=== PATIENT | female | born 1985 | race Caucasian/White ===

== ENCOUNTER 2021-09-26 15:17 | Emergency (ER) | payer BC ==
[~2021-09-26] VITALS: Ht 170.2 cm; Wt 163.6 kg
[~2021-09-26 15:17] MED LIST: ALPRAZOLAM; BCP PO; BCP TD; CIPRO 500MG TA500 MG PO; FLEXERIL 1010 MG/TAB PO; LORTAB 5/500 501 TAB PO; LORTAB 7.5/5001 TAB PO; MEDROL 4MG DOSPA4 MG PO
[2021-09-26 18:18] VITALS: TEMP 98.1
[2021-09-26] MEDS ORDERED: NORCO 325 MG-51 TAB PO (19:38)
[2021-09-26 20:30] VITALS: PULSE 96
[2021-09-26 21:16] VITALS: BP 188/90
== END 2021-09-26 20:30 | disposition home or self-care (01) ==
LOC: COL.ER 15:17
DX: S82.831A Other fracture of upper and lower end of right fibula, initial encounter for closed fracture (principal); W10.9XXA Fall (on) (from) unspecified stairs and steps, initial encounter

== ENCOUNTER 2022-11-13 16:49 | Emergency (ER) | payer BC ==
[~2022-11-13] VITALS: Ht 167.6 cm; Wt 163.6 kg
[~2022-11-13 16:49] MED LIST changes: +NORCO 325 MG-51 TAB PO
[2022-11-13 17:26] VITALS: TEMP 98.6
[2022-11-13] MEDS ORDERED: CELEXA10 MG PO (17:37)
[2022-11-13] MEDS ORDERED: PRIL40 PO (17:38)
[2022-11-13 19:52] LABS: BASO # 0.1 K/mm3 (0.0-0.2); BASO % 0.7 % (0.0-2.0); EOS # 0.2 K/mm3 (0.0-0.7); EOS % 1.8 % (0.0-4.0); GRAN % 69.5 % (42.2-75.2); HEMATOCRIT 39.4 % (37.0-47.0); HEMOGLOBIN 12.7 g/dl (12.5-16.0); LYMPH # 2.5 K/mm3 (1.2-3.4); LYMPH % 22.2 % (20.0-51.0); MEAN CELL VOLUME 82 fl (80.0-100.0); MEAN CORPUSCULAR HEMOGLOBIN 27 pg (27-31); MEAN CORPUSCULAR HGB CONC 32 g/dl (33.0-37.0); MEAN PLATELET VOLUME 10.5 fl (7.4-10.4); MONO # 0.6 K/mm3 (0.1-0.6); MONO % 5.4 % (1.7-9.3); PLATELET COUNT 399 K/mm3 (130-400); RED BLOOD COUNT 4.78 M/mm3 (4.10-5.30); REDCELL DISTRIBUTION WIDTH-CV 16.6 % (11.5-14.5)
[2022-11-13 20:02] LABS: ALANINE AMINOTRANSFERASE 10 U/L (0-55); ALBUMIN 3.6 gm/dL (3.5-5.0); ALKALINE PHOSPHATASE 71 U/L (40-150); ANION GAP 10 mmol/L (7-16); AST,SGOT 15 U/L (5-34); BILIRUBIN,TOTAL 0.3 mg/dL (0.2-1.2); BLOOD UREA NITROGEN 15 mg/dL (7-19); CALCIUM 9.2 mg/dL (8.4-10.2); CARBON DIOXIDE 24 mmol/L (22-29); CHLORIDE 108 mmol/L (98-107); GLUCOSE 87 mg/dL (70-99); POTASSIUM 4.1 mmol/L (3.5-4.5); SODIUM 142 mmol/L (136-145); TOTAL PROTEIN 6.4 gm/dL (6.2-8.1)
[2022-11-13 20:07] LABS: TROPONIN-I < 0.010 ng/mL (0.00-0.033)
[2022-11-13 21:19] VITALS: BP 128/85; PULSE 71
== END 2022-11-13 21:59 | disposition home or self-care (01) ==
LOC: COL.ER 16:49
PROVIDERS: Physician Assistant
DX: R07.9 Chest pain, unspecified (principal)

== ENCOUNTER 2023-02-02 08:00 | Emergency (ER) | payer BC ==
[~2023-02-02 08:00] MED LIST changes: +CELEXA10 MG PO; +PRIL40 PO
[2023-02-02 08:19] LABS: BASO # 0.1 K/mm3 (0.0-0.2); BASO % 0.8 % (0.0-2.0); EOS # 0.2 K/mm3 (0.0-0.7); EOS % 2.7 % (0.0-4.0); GRAN # 4.5 K/mm3 (1.4-6.5); GRAN % 63.6 % (42.2-75.2); HEMATOCRIT 44.5 % (37.0-47.0); HEMOGLOBIN 14.4 g/dl (12.5-16.0); LYMPH # 1.8 K/mm3 (1.2-3.4); MEAN CELL VOLUME 85 fl (80.0-100.0); MEAN CORPUSCULAR HEMOGLOBIN 28 pg (27-31); MEAN CORPUSCULAR HGB CONC 32 g/dl (33.0-37.0); MEAN PLATELET VOLUME 10.2 fl (7.4-10.4); MONO # 0.5 K/mm3 (0.1-0.6); MONO % 6.6 % (1.7-9.3); PLATELET COUNT 362 K/mm3 (130-400); RED BLOOD COUNT 5.24 M/mm3 (4.10-5.30); REDCELL DISTRIBUTION WIDTH-CV 16.5 % (11.5-14.5)
[2023-02-02] MEDS ORDERED: PRINIVIL10 MG PO (08:23)
[2023-02-02] MEDS ORDERED: ATARAX 10MG10 MG/TAB PO (08:24)
[2023-02-02] MEDS ORDERED: WELLBUTRIN XL150 MG PO (08:25)
[2023-02-02 08:36] LABS: ALANINE AMINOTRANSFERASE 16 U/L (0-55); ALBUMIN 3.8 gm/dL (3.5-5.0); ALKALINE PHOSPHATASE 75 U/L (40-150); ANION GAP 9 mmol/L (7-16); AST,SGOT 16 U/L (5-34); BILIRUBIN,TOTAL 0.4 mg/dL (0.2-1.2); BLOOD UREA NITROGEN 12 mg/dL (7-19); CARBON DIOXIDE 23 mmol/L (22-29); CHLORIDE 111 mmol/L (98-107); CREATININE, serum 0.79 mg/dL (0.57-1.11); GLUCOSE 94 mg/dL (70-99); POTASSIUM 3.9 mmol/L (3.5-4.5); SODIUM 143 mmol/L (136-145); TOTAL PROTEIN 6.7 gm/dL (6.2-8.1)
[2023-02-02 09:24] LABS: TROPONIN-I < 0.010 ng/mL (0.00-0.033)
[2023-02-02 11:39] VITALS: BP 120/78; PULSE 72; TEMP 98.2
== END 2023-02-02 11:45 | disposition home or self-care (01) ==
LOC: COL.ER 08:00
PROVIDERS: Personal Emergency Response Attendant
DX: I10 Essential (primary) hypertension (principal); I45.10 Unspecified right bundle-branch block; Z79.899 Other long term (current) drug therapy

== ENCOUNTER 2024-07-22 17:11 | Emergency (ER) | payer BC, OTHER ==
[~2024-07-22] VITALS: Ht 170.2 cm; Wt 172.7 kg
[~2024-07-22 17:11] MED LIST changes: +ATARAX 10MG10 MG/TAB PO; +HCTZ 25MG TAB25 MG PO; +PRINIVIL10 MG PO; +WELLBUTRIN XL150 MG PO
[2024-07-22 17:34] VITALS: TEMP 98.2
[2024-07-22 17:58] LABS: BASO # 0.1 K/mm3 (0.0-0.2); BASO % 0.9 % (0.0-2.0); EOS # 0.2 K/mm3 (0.0-0.7); EOS % 2.2 % (0.0-4.0); GRAN # 5.4 K/mm3 (1.4-6.5); GRAN % 60.7 % (42.2-75.2); HEMATOCRIT 46.2 % (37.0-47.0); HEMOGLOBIN 15.3 g/dl (12.5-16.0); LYMPH # 2.6 K/mm3 (1.2-3.4); LYMPH % 29.3 % (20.0-51.0); MEAN CELL VOLUME 89 fl (80.0-100.0); MEAN CORPUSCULAR HEMOGLOBIN 29 pg (27-31); MEAN CORPUSCULAR HGB CONC 33 g/dl (33.0-37.0); MEAN PLATELET VOLUME 10.1 fl (7.4-10.4); MONO # 0.6 K/mm3 (0.1-0.6); MONO % 6.7 % (1.7-9.3); PLATELET COUNT 392 K/mm3 (130-400); RED BLOOD COUNT 5.22 M/mm3 (4.10-5.30)
[2024-07-22 18:16] LABS: ALBUMIN 3.7 g/dL (3.5-5.0); BILIRUBIN,TOTAL 0.3 mg/dL (0.2-1.2); C-REACTIVE PROTEIN 0.85 mg/dL (0.00-0.50); CALCIUM 9.5 mg/dL (8.4-10.2); CREATININE, serum 0.81 mg/dL (0.57-1.11); POTASSIUM 3.8 mEq/L (3.5-4.5); TOTAL PROTEIN 6.6 g/dl (6.2-8.1)
[2024-07-22 18:37] LABS: COLLECTION METHOD CLEAN CATCH
[2024-07-22 18:47] LABS: URINE APPEARANCE CLOUDY (CLEAR/HAZY); URINE BLOOD TRACE (NEGATIVE); URINE COLOR Dark Yellow (YELLOW); URINE GLUCOSE NEGATIVE (NEGATIVE); URINE KETONE TRACE (NEGATIVE); URINE NITRATE NEGATIVE (NEGATIVE); URINE PROTEIN(semi-quant) TRACE (NEGATIVE)
[2024-07-22] MEDS ORDERED: HYDROmorphone 0.5 MG/0.5 ML SYRINGE IV ONE (19:15)
[2024-07-22] MEDS ORDERED: Ketorolac 30 MG/ML VIAL IV ONE (19:15)
[2024-07-22] MEDS ORDERED: Ondansetron 4 MG/2 ML VIAL IV ONE (19:15)
[2024-07-22 19:35] LABS: BUDDING YEAST PRESENT (NOT PRESENT); URINE BACTERIA OCCASIONAL /hpf (NONE SEEN); URINE CALCIUM OXALATE CRYSTAL PRESENT (NOT PRESENT)
[2024-07-22] MEDS ORDERED: Iohexol 300 - 100 ML VIAL IV ONE (19:50)
[2024-07-22] MEDS ORDERED: NS 50 ML IV SCH (19:50)
[2024-07-22] MEDS ORDERED: droPERidol 2.5 MG/ML 2 ML VIAL IV ONE (21:15)
[2024-07-22] MEDS ORDERED: ZOFRAN ODT4 MG PO (21:32)
[2024-07-22] MEDS ORDERED: NORCO 325 MG-51 TAB PO (21:32)
[2024-07-22 21:35] VITALS: BP 121/86; PULSE 70
[2024-07-22] MEDS ORDERED: Home Ondansetron ODT 4 MG #2 ODT/PACK PO ONE (21:45)
[2024-07-22] MEDS ORDERED: Home HYDROcodone/Acetaminophen 5/325 MG #4 TABS/PACK PO ONE (21:45)
== END 2024-07-22 21:48 | disposition home or self-care (01) ==
LOC: COL.ER 17:11
PROVIDERS: Nurse Practitioner
DX: K29.70 Gastritis, unspecified, without bleeding (principal); Z90.49 Acquired absence of other specified parts of digestive tract
CPT/HCPCS: J1171; J1790; J1885; J2405; Q9967